=== PATIENT | male | born 1965 | race African-American/Black ===

== ENCOUNTER 2024-11-27 12:41 | Inpatient (IN) | payer OTHER ==
[~2024-11-27] VITALS: Ht 175.3 cm; Wt 68.5 kg
[2024-11-27] VITALS (8 sets, daily range): BP systolic 101–137; BP diastolic 72–91; TEMP 97.6; O2SAT 97–99
[2024-11-27] MEDS: VANCOMYCIN 1 GM in IV D5W 250 ML IV ONE (13:00)
[2024-11-27] MEDS: IV NS 0.9% 1,000 ML BAG IV ONE (13:02)
[2024-11-27 13:06] LABS: BASOPHILS % (AUTO) 0.1 % (0.0-2.0); EOSINOPHILS % (AUTO) 0.1 % (0.0-6.0); HEMATOCRIT 41 % (39-51); HEMOGLOBIN 13.2 g/dL (13.5-17.5); LYMPHOCYTES % (AUTO) 7.8 % (20.0-44.0); MEAN CORPUSCULAR HEMOGLOBIN 31 PG (26.0-33.0); MEAN CORPUSCULAR HGB CONC 32 g/dl (31.0-36.0); MEAN CORPUSCULAR VOLUME 95 fL (80-96); MONOCYTES # (AUTO) 1.9 K/uL (0.1-1.30); MONOCYTES % (AUTO) 15.1 % (2.0-12.0); NEUTROPHILS # (AUTO) 9.4 K/uL (1.8-8.9); NEUTROPHILS % (AUTO) 76.9 % (43.0-81.0); PLATELET COUNT (AUTO) 433 K/uL (150-450); RED BLOOD CELL COUNT(AUTO) 4.31 MIL/uL (4.5-6.0); RED CELL DISTRIBUTION WIDTH 15.9 % (11.5-15.0); WHITE BLOOD COUNT (AUTO) 12.3 K/uL (4.3-11.0)
[2024-11-27 13:18] LABS: INR 1.24 (0.91-1.10); PARTIAL THROMBOPLASTIN TIME 27.6 SEC (24.3-34.3)
[2024-11-27 13:30] LABS: ALANINE AMINOTRANSFERASE 59 U/L (12-78); ALBUMIN 2.7 g/dL (3.4-5.0); ALKALINE PHOSPHATASE 285 U/L (46-116); ASPARTATE AMINOTRANSFERASE 100 U/L (15-37); BILIRUBIN,DIRECT 0.3 mg/dL (0.0-0.2); BILIRUBIN,TOTAL 0.5 mg/dL (0.2-1.0); CALCIUM, SERUM 8.9 mg/dL (8.5-10.1); CARBON DIOXIDE 35 mmol/L (21-32); CHLORIDE 97 mmol/L (98-107); CREATININE 2.7 mg/dL (0.6-1.3); GLUCOSE 118 mg/dL (74-106); SODIUM SERUM 136 mmol/L (136-145); TOTAL PROTEIN, SERUM 9.5 g/dL (6.4-8.2); UREA NITROGEN, BLOOD 54 mg/dL (7-18)
[2024-11-27 13:32] LABS: POTASSIUM 6.3 mmol/L (3.5-5.1)
[2024-11-27 13:33] LABS: LACTIC ACID 2.8 mmol/L (0.4-2.0)
[2024-11-27] MEDS: CEFEPIME 1 GM in IV D5W 50 ML IV ONE (13:40)
[2024-11-27] MEDS: CALCIUM CHLORIDE 1,000 MG/10 ML DISP.SYRIN IV ONE (14:08)
[2024-11-27] MEDS: SODIUM BICARBONATE SYR 50 MEQ/50 ML DISP.SYRIN IV ONE (14:09)
[2024-11-27] MEDS: SODIUM ZIRCONIUM CYCLOSILICATE 10 GM POWD.PACK PO ONE (14:09)
[2024-11-27 14:38] LABS: ABG OXYGEN SATURATION 99.4 % (94.0-98.0); ABG PH 7.281 (7.350-7.450); ABG TOTAL HEMOGLOBIN 12.3 G/dL (13.5-17.5); COHb 0.4 % (0.5-1.5); SITE, ABG RIGHT RADIAL
[2024-11-27] MEDS ORDERED: BICT1TAB PO (15:10)
[2024-11-27] MEDS ORDERED: SULF1TAB48 PO (15:10)
[2024-11-27] MEDS ORDERED: ONDANSETRON HCL/PF 4 MG/2 ML VIAL IVP PRN (15:30)
[2024-11-27] MEDS ORDERED: Z GUARD REMEDY 4 OZ OINT TP PRN (15:30)
[2024-11-27] MEDS ORDERED: ACETAMINOPHEN 325 MG TABLET PO PRN (15:30)
[2024-11-27] MEDS ORDERED: MAGNESIUM HYDROXIDE 30 ML UDC PO PRN (15:30)
[2024-11-27] MEDS: ALBUTEROL FS 2.5 MG/3 ML VIAL.NEB NEB ONE (15:50)
[2024-11-27] MEDS ORDERED: ALBUTEROL FS 2.5 MG/3 ML VIAL.NEB ONE (16:15)
[2024-11-27 17:29] LABS: APPEARANCE,URINE SLIGHTLY CLOUDY (CLEAR); BILIRUBIN,URINE NEGATIVE (NEGATIVE); BLOOD, URINE NEGATIVE Ery/uL (NEGATIVE); COLOR,URINE DARK YELLOW (YELLOW); KETONES,URINE TRACE mg/dL (NEGATIVE); LEUKOCYTE ESTERASE ,URINE NEGATIVE (NEGATIVE); NITRITE, URINE NEGATIVE (NEGATIVE); PROTEIN,URINE 2+ mg/dl (NEGATIVE); UGLUCOSE NEGATIVE (NEGATIVE); UROBILINOGEN,URINE 0.2 EU/dL (0.2)
[2024-11-27] MEDS: PRIMAQUINE 15 MG TABLET PO SCH (17:30)
[2024-11-27 17:54] LABS: ABG BASE EXCESS 3.8 mmol/L (-2.0-3.0); ABG OXYGEN SATURATION 96.9 % (94.0-98.0); ABG PCO2 56.6 mmHg (35.0-48.0); ABG PO2 110.1 mmHg (83.0-108.0); ABG TOTAL HEMOGLOBIN 11.8 G/dL (13.5-17.5); COHb 0.2 % (0.5-1.5); MetHb 0.3 % (0.0-1.5); O2Hb 96.4 % (94.0-97.0); SITE, ABG RIGHT RADIAL
[2024-11-27] MEDS: IV NS 0.9% 1,000 ML IV SCH (17:54)
[2024-11-27] MEDS: methylPREDNISolone SOD SUCC 40 MG/ML VIAL IV SCH (17:55)
[2024-11-27] MEDS: CLINDAMYCIN 900 MG in IV D5W 50 ML IV SCH (18:00)
[2024-11-27] MEDS ORDERED: CLINDAMYCIN IV RTU IN D5W 900 MG/50 ML PIGGYBACK IV SCH (18:00)
[2024-11-27] MEDS: FLUCONAZOLE IN NS 200 MG in PREMIX 1 EA IV SCH (18:10)
[2024-11-27 18:22] LABS: NT-PRO BNP 21282 pg/mL (0-125)
[2024-11-27] MEDS: VANCOMYCIN 750 MG in IV D5W 250 ML IV ONE (18:30)
[2024-11-27 18:33] LABS: ADD URINE CULTURE NO; BACTERIA,URINE Few /HPF (None Seen); RBC,URINE NONE SEEN /HPF (0-2); SQUAMOUS EPITHELIAL CELL,UR Few /HPF (None Seen); URINE AMORPHOUS URATE Moderate /HPF (None Seen); WBC,URINE 0-2 /HPF (0-3)
[2024-11-27 18:34] LABS: HYALINE CASTS, URINE Few /LPF (None Seen)
[2024-11-27 19:46] LABS: AMPHETAMINE, URINE NEGATIVE (NEGATIVE); BARBITURATE, URINE NEGATIVE (NEGATIVE); BENZODIAZEPINE, URINE NEGATIVE (NEGATIVE); CANNABINOID, URINE NEGATIVE (NEGATIVE); COCCAINE, URINE NEGATIVE (NEGATIVE); OPIATE, URINE NEGATIVE (NEGATIVE); PHENCYCLIDINE SCREEN,URINE NEGATIVE (NEGATIVE)
[2024-11-28] VITALS (34 sets, daily range): BP systolic 96–163; BP diastolic 60–102; TEMP 98–98.7; O2SAT 84–100
[2024-11-28] MEDS: CEFEPIME 1 GM in IV D5W 50 ML IV SCH (01:24)
[2024-11-28 04:36] LABS: BASOPHILS % (AUTO) 0.1 % (0.0-2.0); HEMATOCRIT 32 % (39-51); HEMOGLOBIN 10.5 g/dL (13.5-17.5); LYMPHOCYTES # (AUTO) 0.4 K/uL (0.8-4.8); LYMPHOCYTES % (AUTO) 6.4 % (20.0-44.0); MEAN CORPUSCULAR HEMOGLOBIN 31 PG (26.0-33.0); MEAN CORPUSCULAR HGB CONC 33 g/dl (31.0-36.0); MEAN CORPUSCULAR VOLUME 93 fL (80-96); MONOCYTES # (AUTO) 0.4 K/uL (0.1-1.30); MONOCYTES % (AUTO) 6.5 % (2.0-12.0); NEUTROPHILS # (AUTO) 5.7 K/uL (1.8-8.9); PLATELET COUNT (AUTO) 336 K/uL (150-450); RED BLOOD CELL COUNT(AUTO) 3.42 MIL/uL (4.5-6.0); RED CELL DISTRIBUTION WIDTH 15.4 % (11.5-15.0); WHITE BLOOD COUNT (AUTO) 6.5 K/uL (4.3-11.0)
[2024-11-28 05:06] LABS: CALCIUM, SERUM 8.2 mg/dL (8.5-10.1); CREATININE 1.6 mg/dL (0.6-1.3); MAGNESIUM 2.6 mg/dL (1.8-2.4); PHOSPHORUS 6.6 mg/dL (2.5-4.9)
[2024-11-28 05:14] LABS: POTASSIUM 6.2 mmol/L (3.5-5.1)
[2024-11-28] MEDS: INSULIN REGULAR, HUMAN 100 UNIT/ML 10 ML VIAL IV ONE ×2 (06:50→07:20)
[2024-11-28] MEDS: DEXTROSE 50%-WATER 50 ML DISP.SYRIN IVP ONE ×2 (06:51→07:13)
[2024-11-28] MEDS ORDERED: Calcium Gluconate 1GM/10ML 4.65 MEQ in IV NS 0.9% 100 ML IV ONE (07:00)
[2024-11-28] MEDS: Calcium Gluconate 0.465 MEQ/ML VIAL IV ONE (07:10)
[2024-11-28] MEDS: BIKTARVY 50-200-25 MG TABLET NF PO SCH (07:31)
[2024-11-28 07:49] LABS: APPEARANCE,URINE CLOUDY (CLEAR); BILIRUBIN,URINE NEGATIVE (NEGATIVE); BLOOD, URINE NEGATIVE Ery/uL (NEGATIVE); COLOR,URINE YELLOW (YELLOW); KETONES,URINE NEGATIVE (NEGATIVE); LEUKOCYTE ESTERASE ,URINE NEGATIVE (NEGATIVE); NITRITE, URINE NEGATIVE (NEGATIVE); PROTEIN,URINE TRACE mg/dl (NEGATIVE); UGLUCOSE NEGATIVE (NEGATIVE); UROBILINOGEN,URINE 0.2 EU/dL (0.2)
[2024-11-28 08:55] LABS: RBC,URINE NONE SEEN /HPF (0-2); SQUAMOUS EPITHELIAL CELL,UR 0-2 /HPF (None Seen); WBC,URINE NONE SEEN /HPF (0-3)
[2024-11-28] MEDS ORDERED: SULFAMETH/TRIMETH 800/160 MG 1 UDTAB TABLET PO SCH (09:00)
[2024-11-28 09:02] LABS: ADD URINE CULTURE NO; BACTERIA,URINE Few /HPF (None Seen); URINE AMORPHOUS URATE Moderate /HPF (None Seen)
[2024-11-28 09:03] LABS: URIC ACID CRYSTALS,URINE Rare /HPF (None Seen)
[2024-11-28] MEDS: SODIUM POLYSTYRENE SULFONATE 15 G/60 ML BOTTLE PO ONE (09:18)
[2024-11-28 09:44] LABS: ABG BASE EXCESS 7.1 mmol/L (-2.0-3.0); ABG OXYGEN SATURATION 93.8 % (94.0-98.0); ABG PCO2 65.4 mmHg (35.0-48.0); ABG PH 7.343 (7.350-7.450); ABG PO2 78.6 mmHg (83.0-108.0); ABG TOTAL HEMOGLOBIN 11.8 G/dL (13.5-17.5); COHb 0.9 % (0.5-1.5); MetHb 0.3 % (0.0-1.5); O2Hb 92.7 % (94.0-97.0); SITE, ABG LEFT RADIAL
[2024-11-28] MEDS: SODIUM ZIRCONIUM CYCLOSILICATE 10 GM POWD.PACK PO SCH (12:03)
[2024-11-28] MEDS: CALCIUM CARBONATE 500 MG TAB.CHEW PO SCH (12:03)
[2024-11-28] MEDS: IPRATROPIUM NEB FS 0.5 MG/2.5 ML AMPUL.NEB NEB SCH (14:30)
[2024-11-28] MEDS: ALBUTEROL HALF STRENGTH 1.25 MG/3 ML VIAL.NEB NEB SCH (14:30)
[2024-11-28] MEDS: HEPARIN SODIUM, PORCINE 5000 UNITS/1 ML VIAL SQ SCH (14:41)
[2024-11-28] MEDS: VANCOMYCIN 1 GM in IV D5W 250ml IV SCH (17:51)
[2024-11-28 18:43] LABS: CREATININE 1.2 mg/dL (0.6-1.3); POTASSIUM 5.5 mmol/L (3.5-5.1)
[2024-11-28] MEDS: MAG HYDROX/AL HYDROX/SIMETH 30 ML UDC PO PRN (20:30)
[2024-11-29] VITALS (38 sets, daily range): BP systolic 98–136; BP diastolic 52–98; TEMP 98–98.3; O2SAT 89–100
[2024-11-29 05:23] LABS: EOSINOPHILS # (AUTO) 0.1 K/uL (0.0-0.7); EOSINOPHILS % (AUTO) 1.3 % (0.0-6.0); HEMATOCRIT 35 % (39-51); HEMOGLOBIN 11.1 g/dL (13.5-17.5); LYMPHOCYTES # (AUTO) 0.4 K/uL (0.8-4.8); LYMPHOCYTES % (AUTO) 4.5 % (20.0-44.0); MEAN CORPUSCULAR HEMOGLOBIN 31 PG (26.0-33.0); MEAN CORPUSCULAR HGB CONC 32 g/dl (31.0-36.0); MEAN CORPUSCULAR VOLUME 95 fL (80-96); MONOCYTES # (AUTO) 0.5 K/uL (0.1-1.30); MONOCYTES % (AUTO) 6.3 % (2.0-12.0); NEUTROPHILS # (AUTO) 7.3 K/uL (1.8-8.9); NEUTROPHILS % (AUTO) 87.9 % (43.0-81.0); PLATELET COUNT (AUTO) 372 K/uL (150-450); RED BLOOD CELL COUNT(AUTO) 3.65 MIL/uL (4.5-6.0); RED CELL DISTRIBUTION WIDTH 15.8 % (11.5-15.0); WHITE BLOOD COUNT (AUTO) 8.3 K/uL (4.3-11.0)
[2024-11-29 05:28] LABS: ALBUMIN 1.8 g/dL (3.4-5.0); BILIRUBIN,TOTAL 0.4 mg/dL (0.2-1.0); CALCIUM, SERUM 7.8 mg/dL (8.5-10.1); CREATININE 1.1 mg/dL (0.6-1.3); MAGNESIUM 2.9 mg/dL (1.8-2.4); PHOSPHORUS 5.2 mg/dL (2.5-4.9); POTASSIUM 5.8 mmol/L (3.5-5.1); TOTAL PROTEIN, SERUM 7.3 g/dL (6.4-8.2)
[2024-11-29 08:11] LABS: *BASOS 0 % (Not Estab.); *COMMENTS Note: (.); *EOS 0 % (Not Estab.); *HCT 35.1 % (37.5-51.0); *HGB 11.2 g/dL (13.0-17.7); *LYMPHOCYTES 13 % (Not Estab.); *LYMPHS, ABSOLUTE 1.4 x10E3/uL (0.7-3.1); *MCH 29.7 pg (26.6-33.0); *MCHC 31.9 g/dL (31.5-35.7); *MCV 93 fL (79-97); *MONOCYTES 15 % (Not Estab.); *MONOS, ABSOLUTE 1.6 x10E3/uL (0.1-0.9); *NEUTROPHILS 72 % (Not Estab.); *NEUTROPHILS, ABSOLUTE 7.6 x10E3/uL (1.4-7.0); *NRBC 1 % (0 - 0); *PLT 377 x10E3/uL (150-450); *RBC 3.77 x10E6/uL (4.14-5.80); *RDW 13.4 % (11.6-15.4); *WBC 10.6 x10E3/uL (3.4-10.8)
[2024-11-29 13:12] LABS: *% CD 4 POS. LYMPH 7.1 % (30.8-58.5); *% CD 8 POS. LYMPH 50.7 % (12.0-35.5); *ABSOLUTE CD 4 HELPER 99 /uL (359-1519); *ABSOLUTE CD 8 SUPPRESSOR 710 /uL (109-897); *CD4/CD8 RATIO 0.14 (0.92-3.72)
[2024-11-29] MEDS: CEFEPIME 2 GM in IV D5W 100 ML IV SCH (13:30)
[2024-11-29] MEDS: ENSURE ENLIVE 237 ML LIQUID (VANILLA) PO SCH (16:56)
[2024-11-29] MEDS: IV NS 0.9% 1,000 ML IV PRN (19:37)
[2024-11-30] VITALS (14 sets, daily range): BP systolic 100–128; BP diastolic 70–83; TEMP 97.9–98.4; O2SAT 93–98
[2024-11-30] MEDS: SIMETHICONE 80 MG TAB.CHEW PO PRN (02:06)
[2024-11-30 06:37] LABS: EOSINOPHILS % (AUTO) 0.1 % (0.0-6.0); HEMATOCRIT 36 % (39-51); HEMOGLOBIN 11.3 g/dL (13.5-17.5); LYMPHOCYTES # (AUTO) 0.5 K/uL (0.8-4.8); LYMPHOCYTES % (AUTO) 4.7 % (20.0-44.0); MEAN CORPUSCULAR HEMOGLOBIN 30 PG (26.0-33.0); MEAN CORPUSCULAR HGB CONC 31 g/dl (31.0-36.0); MEAN CORPUSCULAR VOLUME 95 fL (80-96); MONOCYTES # (AUTO) 0.9 K/uL (0.1-1.30); NEUTROPHILS # (AUTO) 9.3 K/uL (1.8-8.9); NEUTROPHILS % (AUTO) 87.2 % (43.0-81.0); PLATELET COUNT (AUTO) 432 K/uL (150-450); RED BLOOD CELL COUNT(AUTO) 3.79 MIL/uL (4.5-6.0); RED CELL DISTRIBUTION WIDTH 15.1 % (11.5-15.0); WHITE BLOOD COUNT (AUTO) 10.6 K/uL (4.3-11.0)
[2024-11-30 06:49] LABS: CALCIUM, SERUM 7.8 mg/dL (8.5-10.1); POTASSIUM 4.4 mmol/L (3.5-5.1)
[2024-11-30 09:51] LABS: LYMPHOCYTES % (MANUAL) 6 % (16-48); MONOCYTES % (MANUAL) 5 % (0-11.0); NEUTROPHILS % (MANUAL) 89 (42-76); PLATELET ESTIMATE ADEQUATE; STOMATOCYTES 1+
[2024-11-30 10:10] LABS: PTH, INTACT 75 pg/mL (15-65)
[2024-11-30 14:10] LABS: *HIV-1 RNA BY PCR 100 copies/mL (.)
[2024-12-01] VITALS (14 sets, daily range): BP systolic 109–132; BP diastolic 69–91; TEMP 97.2–98.9; O2SAT 92–98
[2024-12-01 07:08] LABS: BASOPHILS % (AUTO) 0.1 % (0.0-2.0); EOSINOPHILS # (AUTO) 0.1 K/uL (0.0-0.7); EOSINOPHILS % (AUTO) 0.7 % (0.0-6.0); HEMATOCRIT 38 % (39-51); LYMPHOCYTES # (AUTO) 0.7 K/uL (0.8-4.8); LYMPHOCYTES % (AUTO) 6.4 % (20.0-44.0); MEAN CORPUSCULAR HEMOGLOBIN 30 PG (26.0-33.0); MEAN CORPUSCULAR HGB CONC 32 g/dl (31.0-36.0); MEAN CORPUSCULAR VOLUME 94 fL (80-96); MONOCYTES # (AUTO) 0.5 K/uL (0.1-1.30); MONOCYTES % (AUTO) 4.5 % (2.0-12.0); NEUTROPHILS # (AUTO) 10.1 K/uL (1.8-8.9); NEUTROPHILS % (AUTO) 88.3 % (43.0-81.0); PLATELET COUNT (AUTO) 489 K/uL (150-450); RED BLOOD CELL COUNT(AUTO) 4.03 MIL/uL (4.5-6.0); RED CELL DISTRIBUTION WIDTH 15.4 % (11.5-15.0); WHITE BLOOD COUNT (AUTO) 11.4 K/uL (4.3-11.0)
[2024-12-01 07:27] LABS: CALCIUM, SERUM 7.9 mg/dL (8.5-10.1); CREATININE 0.9 mg/dL (0.6-1.3); POTASSIUM 4.6 mmol/L (3.5-5.1)
[2024-12-01 08:38] LABS: BAND % (MANUAL) 1 % (0.0-5.0); LYMPHOCYTES % (MANUAL) 6 % (16-48); MONOCYTES % (MANUAL) 1 % (0-11.0); MYELOCYTES % 1 % (0-0); NEUTROPHILS % (MANUAL) 91 (42-76); PLATELET ESTIMATE INCREASED
[2024-12-01 08:39] LABS: ANISOCYTOSIS 1+; STOMATOCYTES 2+; TARGET CELLS 1+
[2024-12-01] MEDS: CEFEPIME 2 GM in IV D5W 100 ML IV SCH (14:08)
[2024-12-01] MEDS: FLUCONAZOLE IN NS 400 MG in PREMIX 1 EA IV SCH (17:34)
[2024-12-02] VITALS (12 sets, daily range): BP systolic 111–133; BP diastolic 79–98; TEMP 97.5–98.4; O2SAT 93–100
[2024-12-02 06:43] LABS: BASOPHILS % (AUTO) 0.3 % (0.0-2.0); EOSINOPHILS # (AUTO) 0.2 K/uL (0.0-0.7); EOSINOPHILS % (AUTO) 1.6 % (0.0-6.0); HEMATOCRIT 36 % (39-51); HEMOGLOBIN 11.2 g/dL (13.5-17.5); LYMPHOCYTES # (AUTO) 0.9 K/uL (0.8-4.8); LYMPHOCYTES % (AUTO) 6.2 % (20.0-44.0); MEAN CORPUSCULAR HEMOGLOBIN 30 PG (26.0-33.0); MEAN CORPUSCULAR HGB CONC 31 g/dl (31.0-36.0); MEAN CORPUSCULAR VOLUME 94 fL (80-96); MONOCYTES # (AUTO) 0.7 K/uL (0.1-1.30); NEUTROPHILS # (AUTO) 12.5 K/uL (1.8-8.9); NEUTROPHILS % (AUTO) 86.9 % (43.0-81.0); PLATELET COUNT (AUTO) 427 K/uL (150-450); RED BLOOD CELL COUNT(AUTO) 3.81 MIL/uL (4.5-6.0); RED CELL DISTRIBUTION WIDTH 15.4 % (11.5-15.0); WHITE BLOOD COUNT (AUTO) 14.4 K/uL (4.3-11.0)
[2024-12-02 07:19] LABS: CREATININE 0.9 mg/dL (0.6-1.3); POTASSIUM 4.1 mmol/L (3.5-5.1)
[2024-12-02 08:32] LABS: ABG BASE EXCESS 9.8 mmol/L (-2.0-3.0); ABG OXYGEN SATURATION 91.5 % (94.0-98.0); ABG PCO2 59.3 mmHg (35.0-48.0); ABG PH 7.407 (7.350-7.450); ABG PO2 64.1 mmHg (83.0-108.0); ABG TOTAL HEMOGLOBIN 12.5 G/dL (13.5-17.5); COHb 0.9 % (0.5-1.5); MetHb 2.5 % (0.0-1.5); O2Hb 88.4 % (94.0-97.0); SITE, ABG RIGHT RADIAL
[2024-12-02 10:12] LABS: *SPE A/G RATIO 0.4 (0.7-1.7); *SPE ALPHA-1-GLOBULIN 0.5 g/dL (0.0-0.4); *SPE ALPHA-2-GLOBULIN 1.1 g/dL (0.4-1.0); *SPE BETA GLOBULIN 1.2 g/dL (0.7-1.3); *SPE GLOBULIN, TOTAL 4.5 g/dL (2.2-3.9); *SPE M-SPIKE Not Observed g/dL (Not Observed); *SPE PROTEIN TOTAL 6.5 g/dL (6.0-8.5); *SPEGAMMA GLOBULIN 1.7 g/dL (0.4-1.8)
[2024-12-02] MEDS: predniSONE 20 MG TABLET PO SCH (12:56)
[2024-12-03] VITALS (9 sets, daily range): BP systolic 118–129; BP diastolic 74–89; TEMP 97.5–98.2; O2SAT 92–100
[2024-12-03 06:55] LABS: BASOPHILS % (AUTO) 0.1 % (0.0-2.0); EOSINOPHILS # (AUTO) 0.1 K/uL (0.0-0.7); EOSINOPHILS % (AUTO) 0.7 % (0.0-6.0); HEMATOCRIT 36 % (39-51); HEMOGLOBIN 11.7 g/dL (13.5-17.5); LYMPHOCYTES # (AUTO) 1.5 K/uL (0.8-4.8); LYMPHOCYTES % (AUTO) 9.8 % (20.0-44.0); MEAN CORPUSCULAR HEMOGLOBIN 31 PG (26.0-33.0); MEAN CORPUSCULAR HGB CONC 33 g/dl (31.0-36.0); MEAN CORPUSCULAR VOLUME 95 fL (80-96); MONOCYTES # (AUTO) 0.8 K/uL (0.1-1.30); MONOCYTES % (AUTO) 5.3 % (2.0-12.0); NEUTROPHILS # (AUTO) 12.5 K/uL (1.8-8.9); NEUTROPHILS % (AUTO) 84.1 % (43.0-81.0); PLATELET COUNT (AUTO) 469 K/uL (150-450); RED CELL DISTRIBUTION WIDTH 15.3 % (11.5-15.0); WHITE BLOOD COUNT (AUTO) 14.9 K/uL (4.3-11.0)
[2024-12-03 07:10] LABS: PHOSPHORUS 3.1 mg/dL (2.5-4.9)
[2024-12-03 07:42] LABS: CALCIUM, SERUM 8.3 mg/dL (8.5-10.1); CREATININE 0.8 mg/dL (0.6-1.3); POTASSIUM 3.6 mmol/L (3.5-5.1)
[2024-12-03 09:08] LABS: ABG OXYGEN SATURATION 81.1 % (94.0-98.0); ABG PCO2 64.4 mmHg (35.0-48.0); ABG PH 7.443 (7.350-7.450); ABG PO2 45.6 mmHg (83.0-108.0); ABG TOTAL HEMOGLOBIN 12.3 G/dL (13.5-17.5); COHb 0.5 % (0.5-1.5); MetHb 3.1 % (0.0-1.5); O2Hb 78.2 % (94.0-97.0); SITE, ABG RIGHT RADIAL
== END 2024-12-03 16:30 | disposition left against medical advice (07) | DRG 890 ==
LOC: ER 12:45 → ICU 17:04 → TELE1 11-29 23:38 → TELE-TD 11-30 00:03 → TELE1 11-30 09:32
PROVIDERS: ADMIT Internal Medicine; ATTEND Student in an Organized Health Care Education/Training Program
PROC: 5A09357 Assistance with Respiratory Ventilation, Less than 24 Consecutive Hours, Continuous Positive Airway Pressure (ICD-10-PCS; principal; 2024-11-27)
DX: A41.9 Sepsis, unspecified organism (principal); B20 Human immunodeficiency virus [HIV] disease; J96.01 Acute respiratory failure with hypoxia; N17.0 Acute kidney failure with tubular necrosis; B59 Pneumocystosis; J15.9 Unspecified bacterial pneumonia; D63.8 Anemia in other chronic diseases classified elsewhere; E83.39 Other disorders of phosphorus metabolism; E46 Unspecified protein-calorie malnutrition; E87.29 Other acidosis; I27.20 Pulmonary hypertension, unspecified; E83.9 Disorder of mineral metabolism, unspecified; J96.22 Acute and chronic respiratory failure with hypercapnia; J96.21 Acute and chronic respiratory failure with hypoxia; E83.42 Hypomagnesemia; E86.9 Volume depletion, unspecified; E87.5 Hyperkalemia; E88.09 Other disorders of plasma-protein metabolism, not elsewhere classified; Z79.899 Other long term (current) drug therapy; Z87.01 Personal history of pneumonia (recurrent); Z91.199 Patient's noncompliance with other medical treatment and regimen due to unspecified reason; Z53.29 Procedure and treatment not carried out because of patient's decision for other reasons; J84.9 Interstitial pulmonary disease, unspecified; E87.70 Fluid overload, unspecified; Z68.22 Body mass index [BMI] 22.0-22.9, adult
CPT/HCPCS: 36415; 36600; 71045-TC; 71250-TC; 76770-TC; 80048-TC; 80053-TC; 80076-TC; 80202-TC; 81001; 82550-TC; 82803-TC; 82962-TC; 83605-TC; 83615-TC; 83735-TC; 83880; 83970; 84100-TC; 84155; 84165; 85025-TC; 85378-TC; 85730-TC; 86360; 87040-TC; 87081-TC; 87449; 87536; 87899; 93307-TC; 93970-TC; 94660; 94760-TC; 94799-TC; 97110-TC; 97116-TC; 97530-TC; A4216; A4223; G0378; J0612; J0692; J1450; J1644; J1815; J2919; J3370; J3371; J3490; J7030; J7042; J7050; J7060